=== PATIENT | male | born 1995 | race Caucasian/White ===

== ENCOUNTER 2019-02-01 11:46 | Emergency (ER) | payer MEDICAID, OTHER ==
[~2019-02-01] VITALS: Ht 175.3 cm; Wt 111.1 kg
[2019-02-01 12:02] VITALS: BP_SYST 149
[2019-02-01 12:36] VITALS: BP_SYST 136
== END 2019-02-01 12:36 | disposition home or self-care (01) ==
LOC: SED 11:46
DX: J45.909 Unspecified asthma, uncomplicated (principal); T78.49XA Other allergy, initial encounter; X58.XXXA Exposure to other specified factors, initial encounter
CPT/HCPCS: 99283